=== PATIENT | male | born 1995 | race Asian ===

== ENCOUNTER 2018-03-12 12:22 | Emergency (ER) | payer OTHER ==
[2018-03-12] MEDS ORDERED: Ketorolac Tromethamine 60 MG/2 ML VIAL ONE (12:50)
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
== END 2018-03-12 13:37 | disposition home or self-care (01) ==
LOC: SCSER 12:22
DX: S69.92XA Unspecified injury of left wrist, hand and finger(s), initial encounter (principal); M62.838 Other muscle spasm; J45.909 Unspecified asthma, uncomplicated; Z79.899 Other long term (current) drug therapy; V43.53XA Car driver injured in collision with pick-up truck in traffic accident, initial encounter
CPT/HCPCS: 96372; J1885